=== PATIENT | male | born 1975 | race Caucasian/White ===

== ENCOUNTER 2019-08-28 10:48 | Emergency (ER) | payer BC ==
[~2019-08-28] VITALS: Ht 162.6 cm; Wt 61.3 kg
[2019-08-28] MEDS ORDERED: ipratropium/albuterol 3ml nebule NEB ONE (11:25)
[2019-08-28] MEDS ORDERED: azithromycin 250mg tablet PO ONE (11:25)
[2019-08-28] MEDS ORDERED: predniSONE 20 mg tablet PO ONE (11:25)
[2019-08-28] MEDS ORDERED: AZIT250T82 PO (11:45)
[2019-08-28] MEDS ORDERED: ALBU8.5H8 INH (11:45)
[2019-08-28] MEDS ORDERED: PRED20TA PO (11:45)
[2019-08-28 12:31] VITALS: BP 131/98
== END 2019-08-28 12:44 | disposition home or self-care (01) ==
LOC: ER 10:49
DX: J44.1 Chronic obstructive pulmonary disease with (acute) exacerbation (principal); Z87.891 Personal history of nicotine dependence; Z79.2 Long term (current) use of antibiotics; Z79.899 Other long term (current) drug therapy
CPT/HCPCS: 71045; 94640; 99283; J7512; 94760

== ENCOUNTER 2019-11-10 10:41 | Emergency (ER) | payer BC ==
[~2019-11-10 10:41] MED LIST: ALBU8.5H8 INH
[2019-11-11] MEDS ORDERED: PERM60CR19 TOP (13:32)
[2019-11-11] MEDS ORDERED: CEPH250T PO (13:32)
== END 2019-11-10 12:49 | disposition left against medical advice (07) ==
LOC: ER 10:42
DX: R21 Rash and other nonspecific skin eruption (principal); Z53.21 Procedure and treatment not carried out due to patient leaving prior to being seen by health care provider

== ENCOUNTER 2019-11-11 10:46 | Emergency (ER) | payer BC ==
[~2019-11-11] VITALS: Ht 165.1 cm; Wt 65.9 kg
[2019-11-11 11:10] VITALS: BP 117/71
[2019-11-11] MEDS ORDERED: PERM60CR19 TOP (13:32)
[2019-11-11] MEDS ORDERED: CEPH250T PO (13:32)
== END 2019-11-11 14:08 | disposition home or self-care (01) ==
LOC: ER 10:47
DX: B86 Scabies (principal); J44.9 Chronic obstructive pulmonary disease, unspecified; Z79.899 Other long term (current) drug therapy
CPT/HCPCS: 99283

== ENCOUNTER 2020-06-26 08:09 | Emergency (ER) | payer BC, MEDICAID ==
[~2020-06-26] VITALS: Ht 162.6 cm; Wt 68.2 kg
[2020-06-26] MEDS ORDERED: PRED20TA PO (09:26)
[2020-06-26 09:35] VITALS: BP 108/70
== END 2020-06-26 09:37 | disposition home or self-care (01) ==
LOC: ER 08:10
DX: R07.81 Pleurodynia (principal); J44.9 Chronic obstructive pulmonary disease, unspecified
CPT/HCPCS: 71045; 99283

== ENCOUNTER 2020-07-04 10:17 | Emergency (ER) | payer MEDICAID ==
[~2020-07-04] VITALS: Ht 162.6 cm; Wt 69.0 kg
[2020-07-04 13:02] LABS: BASOPHILS # (AUTO) 0.1 X10'3 (0-0.2); BASOPHILS % (AUTO) 0.7 % (0-1); EOSINOPHILS # (AUTO) 0.4 X10'3 (0-0.9); EOSINOPHILS % (AUTO) 4.1 % (0-6); HEMATOCRIT 45.2 % (42.0-52.0); HEMOGLOBIN 15.1 g/dl (14.0-17.9); LYMPHOCYTES # (AUTO) 1.2 X10'3 (1.1-4.8); LYMPHOCYTES % (AUTO) 11.6 % (21-51); MEAN CORPUSCULAR HEMOGLOBIN 32.2 PG (27.0-31.0); MEAN CORPUSCULAR HGB CONC 33.3 g/dL (33.0-36.5); MEAN CORPUSCULAR VOLUME 96.6 FL (78-98); MEAN PLATELET VOLUME 9.2 FL (7.4-10.4); MONOCYTES # (AUTO) 0.7 X10'3 (0-0.9); MONOCYTES % (AUTO) 6.5 % (2-12); NEUTROPHILS # (AUTO) 8.2 X10'3 (1.8-7.7); NEUTROPHILS % (AUTO) 77.1 % (42-75); PLATELET COUNT 271 X10'3 (140-440); RED BLOOD COUNT 4.68 X10'6 (4.70-6.10); RED CELL DISTRIBUTION WIDTH 13.6 % (11.5-14.5); WHITE BLOOD COUNT 10.6 X10'3 (4.5-11.0)
[2020-07-04 13:22] LABS: ALANINE AMINOTRANSFERASE 36 U/L (12-78); ALBUMIN 4.2 G/DL (3.4-5.0); ALKALINE PHOSPHATASE 108 IU/L (46-116); ANION GAP 9 (8-16); ASPARTATE AMINO TRANSFERASE 16 U/L (10-37); BILIRUBIN,TOTAL 0.8 MG/DL (0.1-1.0); BLOOD UREA NITROGEN 15 MG/DL (7-18); BUN/CREATININE RATIO 15.6 (5.4-32.0); CALCIUM 9.4 MG/DL (8.5-10.1); CHLORIDE 102 MMOL/L (99-107); CREATININE 0.96 MG/DL (0.60-1.10); GLUCOSE 91 MG/DL (70-104); POTASSIUM 3.6 MMOL/L (3.5-5.1); SODIUM 139 MMOL/L (135-145); TOTAL CARBON DIOXIDE 27.7 MMOL/L (24-32); TOTAL PROTEIN 8.6 G/DL (6.4-8.2); eGFR 85 ML/MIN
[2020-07-04] MEDS ORDERED: dexamethasone 4mg tablet PO ONE (14:35)
[2020-07-04] MEDS ORDERED: ALBU8HFA PO (14:52)
[2020-07-04] MEDS ORDERED: DOXY100C43 PO (14:52)
[2020-07-04] MEDS ORDERED: ALB0.5UD IH (14:52)
[2020-07-04] MEDS ORDERED: PRED20TA PO (14:52)
[2020-07-04] MEDS ORDERED: ipratropium/albuterol 3ml nebule NEB ONE (14:55)
[2020-07-04 15:32] VITALS: BP 122/82
== END 2020-07-04 15:36 | disposition home or self-care (01) ==
LOC: ER 10:18
DX: J44.1 Chronic obstructive pulmonary disease with (acute) exacerbation (principal); J20.9 Acute bronchitis, unspecified; R06.02 Shortness of breath; R05 Cough; R07.89 Other chest pain; Z77.22 Contact with and (suspected) exposure to environmental tobacco smoke (acute) (chronic); Z79.2 Long term (current) use of antibiotics; Z79.899 Other long term (current) drug therapy
CPT/HCPCS: 36415; 71046; 80053; 83605; 83880; 85025; 87040; 94640; 94760; 99284

== ENCOUNTER 2021-05-31 23:53 | Emergency (ER) | payer MEDICAID ==
[~2021-05-31] VITALS: Ht 162.6 cm; Wt 63.6 kg
[~2021-05-31 23:53] MED LIST changes: +ALBU8.5H17 INH; -ALBU8.5H8 INH
[2021-06-01] MEDS ORDERED: ipratropium/albuterol 3ml nebule NEB STA ×2 (00:13→01:22)
[2021-06-01] MEDS ORDERED: dexamethasone sod phosphate 10mg/ml inj IV STA (00:13)
[2021-06-01 00:32] LABS: BASOPHILS # (AUTO) 0.1 X10'3 (0-0.2); BASOPHILS % (AUTO) 0.9 % (0-1); EOSINOPHILS # (AUTO) 0.1 X10'3 (0-0.9); EOSINOPHILS % (AUTO) 0.8 % (0-6); LYMPHOCYTES # (AUTO) 0.6 X10'3 (1.1-4.8); LYMPHOCYTES % (AUTO) 5.2 % (21-51); MONOCYTES # (AUTO) 0.9 X10'3 (0-0.9); MONOCYTES % (AUTO) 7.9 % (2-12); NEUTROPHILS # (AUTO) 9.2 X10'3 (1.8-7.7); NEUTROPHILS % (AUTO) 85.2 % (42-75)
[2021-06-01 00:44] LABS: ALANINE AMINOTRANSFERASE 41 U/L (12-78); ALBUMIN 3.9 G/DL (3.4-5.0); ALKALINE PHOSPHATASE 81 IU/L (46-116); ANION GAP 15 (8-16); ASPARTATE AMINO TRANSFERASE 32 U/L (10-37); BILIRUBIN,TOTAL 1.2 MG/DL (0.1-1.0); BLOOD UREA NITROGEN 20 MG/DL (7-18); BUN/CREATININE RATIO 19.8 (5.4-32.0); CHLORIDE 95 MMOL/L (99-107); CREATININE 1.01 MG/DL (0.60-1.10); GLUCOSE 130 MG/DL (70-104); POTASSIUM 4.1 MMOL/L (3.5-5.1); SODIUM 133 MMOL/L (135-145); TOTAL CARBON DIOXIDE 22.8 MMOL/L (24-32); TOTAL PROTEIN 7.8 G/DL (6.4-8.2); eGFR 80 ML/MIN
[2021-06-01 01:14] LABS: HEMATOCRIT 38.1 % (42.0-52.0); HEMOGLOBIN 13.4 g/dl (14.0-17.9); MEAN CORPUSCULAR HEMOGLOBIN 32.6 PG (27.0-31.0); MEAN CORPUSCULAR VOLUME 93.1 FL (78-98); RED BLOOD COUNT 4.09 X10'6 (4.70-6.10); WHITE BLOOD COUNT 10.3 X10'3 (4.5-11.0)
[2021-06-01 01:15] LABS: MEAN PLATELET VOLUME 9.4 FL (7.4-10.4); PLATELET COUNT 235 X10'3 (140-440); RED CELL DISTRIBUTION WIDTH 13.5 % (11.5-14.5)
--- NOTE | 2021-06-01 01:54 | NUR ---
april [phone]
[2021-06-01] MEDS ORDERED: albuterol 2.5 MG/3 ML nebule NEB ONE (02:00)
--- NOTE | 2021-06-01 02:15 | NUR ---
Called stat to critical care. RN to monitor SVN treatment.
[2021-06-01] MEDS ORDERED: iohexol 350MG/ML 100ml bottle IV ONE (02:34)
[2021-06-01 02:38] LABS: TOTAL CELLS COUNTED 100
[2021-06-01 02:39] LABS: PLATELET ESTIMATE NORMAL
[2021-06-01 02:41] LABS: ANISOCYTOSIS FEW; ELLIPTOCYTES FEW; SPHEROCYTES FEW; TEAR DROP CELLS FEW
[2021-06-01 02:50] VITALS: BP 120/66
[2021-06-01] MEDS ORDERED: GUAI400T92 PO (03:28)
[2021-06-01] MEDS ORDERED: ALBU8HFA PO (03:28)
== END 2021-06-01 03:35 | disposition left against medical advice (07) ==
LOC: ER 23:53
DX: J44.1 Chronic obstructive pulmonary disease with (acute) exacerbation (principal); R07.81 Pleurodynia; R06.02 Shortness of breath; E86.0 Dehydration; R05.9 Cough, unspecified; Z79.899 Other long term (current) drug therapy
CPT/HCPCS: 36415; 71045; 80053; 83880; 84484; 85007; 85025; 93005; 94640; 96374; 99285; J1100; Q9967; 94760

== ENCOUNTER 2021-07-02 15:25 | Emergency (ER) | payer MEDICAID ==
[~2021-07-02] VITALS: Ht 162.6 cm; Wt 63.0 kg
[~2021-07-02 15:25] MED LIST changes: +ALBU8HFA PO; +GUAI400T92 PO
--- NOTE | 2021-07-02 16:13 | NUR ---
Dr. Hatch at bedside.
[2021-07-02] MEDS ORDERED: methylPREDNISolone sod succ 125mg/2ml vial IV ONE (16:15)
[2021-07-02] MEDS ORDERED: ipratropium/albuterol 3ml nebule NEB ONE (16:15)
[2021-07-02] MEDS ORDERED: normal saline 1000ml 1,000 ML IV ONE (16:15)
--- NOTE | 2021-07-02 16:20 | NUR ---
Pt moved to room 11. He is severely sob. +Tripoding. Wheezing troughout all gonsalves. +Productive cough with thick olive colored sputum. Pt was resistant to having a swab for Covid-19 but changed his mind and allowed the test.
[2021-07-02] MEDS ORDERED: albuterol 2.5 MG/3 ML nebule CONTNEB PRN (16:30)
[2021-07-02 16:35] LABS: BASOPHILS # (AUTO) 0.1 X10'3 (0-0.2); BASOPHILS % (AUTO) 0.4 % (0-1); EOSINOPHILS # (AUTO) 0.1 X10'3 (0-0.9); HEMATOCRIT 40.6 % (42.0-52.0); HEMOGLOBIN 13.4 g/dl (14.0-17.9); LYMPHOCYTES # (AUTO) 0.9 X10'3 (1.1-4.8); LYMPHOCYTES % (AUTO) 6.2 % (21-51); MEAN CORPUSCULAR HEMOGLOBIN 31.6 PG (27.0-31.0); MEAN CORPUSCULAR HGB CONC 33.1 g/dL (33.0-36.5); MEAN CORPUSCULAR VOLUME 95.3 FL (78-98); MEAN PLATELET VOLUME 8.8 FL (7.4-10.4); MONOCYTES # (AUTO) 1.1 X10'3 (0-0.9); MONOCYTES % (AUTO) 7.8 % (2-12); NEUTROPHILS # (AUTO) 12.1 X10'3 (1.8-7.7); NEUTROPHILS % (AUTO) 84.6 % (42-75); PLATELET COUNT 249 X10'3 (140-440); RED BLOOD COUNT 4.25 X10'6 (4.70-6.10); RED CELL DISTRIBUTION WIDTH 13.9 % (11.5-14.5); WHITE BLOOD COUNT 14.2 X10'3 (4.5-11.0)
[2021-07-02] MEDS ORDERED: LORazepam 2 mg/ml vial IV ONE (16:40)
--- NOTE | 2021-07-02 16:45 | NUR ---
C/O pain in L lower chest.
[2021-07-02 16:54] LABS: ALANINE AMINOTRANSFERASE 39 U/L (12-78); ALBUMIN/GLOBULIN RATIO 1.1 (1.1-1.5); ALKALINE PHOSPHATASE 85 IU/L (46-116); ANION GAP 11 (8-16); ASPARTATE AMINO TRANSFERASE 19 U/L (10-37); BILIRUBIN,TOTAL 1.1 MG/DL (0.1-1.0); BLOOD UREA NITROGEN 20 MG/DL (7-18); BUN/CREATININE RATIO 21.7 (5.4-32.0); CALCIUM 9.5 MG/DL (8.5-10.1); CHLORIDE 100 MMOL/L (99-107); CREATININE 0.92 MG/DL (0.60-1.10); GLUCOSE 85 MG/DL (70-104); POTASSIUM 3.7 MMOL/L (3.5-5.1); SODIUM 139 MMOL/L (135-145); TOTAL CARBON DIOXIDE 27.7 MMOL/L (24-32); TOTAL PROTEIN 7.8 G/DL (6.4-8.2); eGFR 89 ML/MIN
--- NOTE | 2021-07-02 17:29 | NUR ---
Pt opened his door and yelled out in the hallway, "HEY, I NEED ANOTHER BREATHING TREATMENT."
[2021-07-02] MEDS ORDERED: levoFLOXACIN-Levaquin 500mg/D5 100 ML IV ONE (18:10)
[2021-07-02 19:09] VITALS: BP 134/76
[2021-07-02] MEDS ORDERED: PRED20TA PO (19:38)
[2021-07-02] MEDS ORDERED: LEVO500T90 PO (19:38)
== END 2021-07-02 20:30 | disposition home or self-care (01) ==
LOC: ER 15:26
DX: J45.901 Unspecified asthma with (acute) exacerbation (principal); Z20.822 Contact with and (suspected) exposure to COVID-19; R05.9 Cough, unspecified; R06.2 Wheezing; Z79.2 Long term (current) use of antibiotics; Z79.899 Other long term (current) drug therapy
CPT/HCPCS: 36415; 71045; 80053; 83605; 83880; 84145; 84484; 85025; 87040; 87635; 93005; 94640; 96361; 96365; 96375; 99285; C9803; J1956; J2060; J2930; J7030; 94760; A7015

== ENCOUNTER 2021-11-14 00:53 | Inpatient (IN) | payer MEDICAID ==
[~2021-11-14] VITALS: Ht 162.6 cm; Wt 61.5 kg
[~2021-11-14 00:53] MED LIST changes: -ALBU8HFA PO
[2021-11-14] MEDS ORDERED: methylPREDNISolone sod succ 125mg/2ml vial IV ONE (01:00)
[2021-11-14 01:18] LABS: BASOPHILS # (AUTO) 0.1 X10'3 (0-0.2); EOSINOPHILS # (AUTO) 0.5 X10'3 (0-0.9)
[2021-11-14 01:19] LABS: BASOPHILS % (AUTO) 0.9 % (0-1); EOSINOPHILS % (AUTO) 4.2 % (0-6); HEMATOCRIT 38.6 % (42.0-52.0); HEMOGLOBIN 12.5 g/dl (14.0-17.9); LYMPHOCYTES # (AUTO) 1.7 X10'3 (1.1-4.8); LYMPHOCYTES % (AUTO) 14.1 % (21-51); MEAN CORPUSCULAR HEMOGLOBIN 30.5 PG (27.0-31.0); MEAN CORPUSCULAR HGB CONC 32.5 g/dL (33.0-36.5); MEAN CORPUSCULAR VOLUME 93.8 FL (78-98); MEAN PLATELET VOLUME 8.9 FL (7.4-10.4); MONOCYTES # (AUTO) 1.1 X10'3 (0-0.9); MONOCYTES % (AUTO) 9.3 % (2-12); NEUTROPHILS # (AUTO) 8.6 X10'3 (1.8-7.7); NEUTROPHILS % (AUTO) 71.5 % (42-75); PLATELET COUNT 407 X10'3 (140-440); RED BLOOD COUNT 4.11 X10'6 (4.70-6.10); RED CELL DISTRIBUTION WIDTH 14.3 % (11.5-14.5)
[2021-11-14 01:29] LABS: ALANINE AMINOTRANSFERASE 33 U/L (12-78); ALBUMIN 3.4 G/DL (3.4-5.0); ALBUMIN/GLOBULIN RATIO 0.8 (1.1-1.5); ALKALINE PHOSPHATASE 90 IU/L (46-116); ANION GAP 10 (8-16); ASPARTATE AMINO TRANSFERASE 23 U/L (10-37); BILIRUBIN,TOTAL 0.4 MG/DL (0.1-1.0); BLOOD UREA NITROGEN 15 MG/DL (7-18); BUN/CREATININE RATIO 13.8 (5.4-32.0); CALCIUM 9.4 MG/DL (8.5-10.1); CHLORIDE 103 MMOL/L (99-107); CREATININE 1.09 MG/DL (0.60-1.10); GLUCOSE 198 MG/DL (70-104); POTASSIUM 4.5 MMOL/L (3.5-5.1); SODIUM 140 MMOL/L (135-145); TOTAL CARBON DIOXIDE 26.9 MMOL/L (24-32); TOTAL PROTEIN 7.7 G/DL (6.4-8.2); eGFR 73 ML/MIN
[2021-11-14] MEDS ORDERED: albuterol 2.5 MG/3 ML nebule NEB ONE (03:25)
[2021-11-14] MEDS ORDERED: ipratropium 0.5 MG/2.5ML nebule IH ONE (03:25)
[2021-11-14] MEDS ORDERED: cefTRIAXone 1g/NS 100ml IVPB 100 ML IV ONE (04:15)
[2021-11-14] MEDS ORDERED: acetaminophen 325mg tablet PO PRN (05:20)
[2021-11-14] MEDS ORDERED: POTASSIUM BICARB 20meq eff tab 20 MEQ TABLET.EFF PO PRN ×2 (05:20)
[2021-11-14] MEDS ORDERED: magnesium hydroxide 30ml (MOM) UD suspension PO PRN (05:20)
[2021-11-14] MEDS ORDERED: potassium CL 10mEq/100ml bag 100 ML IV PRN (05:20)
[2021-11-14] MEDS ORDERED: ondansetron/PF 4mg/2ml inj IV PRN (05:20)
[2021-11-14] MEDS ORDERED: mag hydrox/Alum hydrox/simeth 30ml oral suspension PO PRN (05:20)
[2021-11-14] MEDS ORDERED: magnesium 2GM in 50ml NS 50 ML IV PRN (05:20)
[2021-11-14] MEDS ORDERED: magnesium Cl slow-release 64mg tablet PO PRN (05:20)
[2021-11-14] MEDS ORDERED: magnesium 4gm in 100ml NS 100 ML IV PRN (05:20)
[2021-11-14] MEDS ORDERED: PERFLUTREN PROTEIN-A MICROSPHR (Optison) 0.22 MG/ML 3ML VIAL IV PRN (05:20)
[2021-11-14 05:35] LABS: ABG BASE EXCESS 0.5 mmol/L (-2.0-2.0); ABG HCO3 25.4 mmol/L (22.0-26.0); ABG OXYGEN SATURATION 96.8 % (94-97); ABG PCO2 (T) 41.1 mmHg (35.0-48.0); ABG PO2 (T) 89.8 mmHg (75.0-100.0); ALLEN'S TEST POSITIVE; FMetHb 0.2 % (0.0-1.5); FO2Hb 96.6 % (94-97); PATIENT TEMPERATURE 36.7; TOTAL HEMOGLOBIN 12.3 G/dl (14.0-18.0)
[2021-11-14] MEDS: normal saline 1000ml 1,000 ML IV SCH (05:59)
--- NOTE | 2021-11-14 06:13 | NUR ---
RESP PAGED FOR NEB TREATMENT ABGS ENTERED
--- NOTE | 2021-11-14 06:30 | NUR ---
FIRST CONTACT WITH PT, FOUND HIGH FOWLERS IN BED. PT BREATHING ON BIPAP, RT AT BEDSIDE FOR BREATHING TX. PT IS AWAITING BED UPSTAIRS, IN NO DISTRESS.
[2021-11-14] MEDS: albuterol 2.5 MG/3 ML nebule NEB PRN ×2 (06:50→10:51)
[2021-11-14] MEDS: K and/or MAG REPLACEMENT MC SCH ×2 (08:00→18:17)
[2021-11-14] MEDS: docusate sod 100mg capsule PO SCH ×2 (08:00→19:48)
[2021-11-14] MEDS: methylPREDNISolone sod succ/PF 40mg inj. IV SCH ×3 (09:38→19:49)
[2021-11-14] MEDS: heparin, porcine 5000 units/ml vial SQ SCH ×2 (09:38→19:49)
[2021-11-14] MEDS: LORazepam 2 mg/ml vial IV PRN ×3 (09:48→20:04)
--- NOTE | 2021-11-14 10:00 | NUR ---
DR. RAMOS AT BEDSIDE. VERBAL ORDER FOR 0.5MG ATIVAN PRN Q4.
--- NOTE | 2021-11-14 11:05 | NUR ---
RT AT BEDSIDE.
--- NOTE | 2021-11-14 14:05 | NUR ---
TELEPHONE REPORT TO CASH POSTING REPRESENTATIVE.
--- NOTE | 2021-11-14 14:20 | NUR ---
RECEIVED PATIENT AN ER HOLD ON BIPAP 30%O2 WITH RT TX ON ARRIVAL TO PACU. DENIES PAIN, V/S STABLE. SKIN CLEAR. 18G PIV RUE.
[2021-11-14] MEDS ORDERED: TRIA15OI9 TOP (14:38)
[2021-11-14] MEDS ORDERED: TIOT4MIS3 INH (14:38)
[2021-11-14] MEDS ORDERED: ALBU2.5V13 NEB (14:38)
[2021-11-14] MEDS ORDERED: IPRA3AMP31 NEB (14:38)
[2021-11-14] MEDS ORDERED: MONT-40 PO (14:38)
[2021-11-14] MEDS ORDERED: LOSA50TA64 PO (14:38)
[2021-11-14] MEDS ORDERED: HYDR12.55 PO (14:38)
--- NOTE | 2021-11-14 14:45 | NUR ---
RT AT BEDSIDE FOR TRANSPORT. WILL TAKE PT OFF BIPAP FOR XFER, PT TOLERATING HIGH FLOW NC, 02 REMAINS 100%. PT IS TACHYPNEIC, WILL MEDICATE WITH PRN ATIVAN.
[2021-11-14 14:50] VITALS: BP 139/98
[2021-11-14] MEDS: ipratropium/albuterol 3ml nebule NEB SCH ×3 (15:09→23:12)
[2021-11-14 15:50] VITALS: BP 156/98
[2021-11-14 16:50] VITALS: BP 145/86
[2021-11-14 17:40] VITALS: BP 132/89
--- NOTE | 2021-11-14 17:40 | NUR ---
PATIENT ON ON BIPAP 30% O2 , DENIES PAIN, V/S STABLE. SKIN CLEAR. 18G PIV RUE. TAKEN TO U 3018A AND REPORT GIVEN TO RN WHO HAS TAKEN OVER PATIENT CARE. CALL LIGHT GIVEN TO PATIENT, RAILS UP AND BED DOWN.
[2021-11-14 18:00] VITALS: BP 144/99
[2021-11-14 19:26] LABS: MAGNESIUM 1.9 MG/DL (1.5-2.4); POTASSIUM 4.5 MMOL/L (3.5-5.1)
[2021-11-14] MEDS: montelukast 10mg tablet PO SCH (19:48)
[2021-11-14 21:52] VITALS: BP 133/93
[2021-11-14 22:24] LABS: URINE AMPHETAMINE SCREEN NEGATIVE (Neg); URINE BARBITUATE SCREEN NEGATIVE (Neg); URINE BENZODIAZEPINES SCREEN NEGATIVE (Neg); URINE CANNABINOID SCREEN POSITIVE (Neg); URINE COCAINE SCREEN NEGATIVE (Neg); URINE METHADONE SCREEN NEGATIVE (Neg); URINE OPIATE SCREEN NEGATIVE (Neg); URINE PHENCYCLIDINE SCREEN NEGATIVE (Neg)
[2021-11-15 02:09] VITALS: BP 106/78
[2021-11-15] MEDS: methylPREDNISolone sod succ/PF 40mg inj. IV SCH ×4 (02:11→19:33)
[2021-11-15] MEDS: ipratropium/albuterol 3ml nebule NEB SCH ×6 (03:21→23:14)
[2021-11-15] MEDS: cefTRIAXone 1g/NS 100ml IVPB 100 ML IV SCH (04:37)
[2021-11-15 06:00] VITALS: BP 119/81
[2021-11-15 06:35] LABS: BASOPHILS % (AUTO) 0.2 % (0-1); EOSINOPHILS % (AUTO) 0.1 % (0-6); HEMATOCRIT 32.9 % (42.0-52.0); LYMPHOCYTES # (AUTO) 0.5 X10'3 (1.1-4.8); LYMPHOCYTES % (AUTO) 6.5 % (21-51); MEAN CORPUSCULAR HEMOGLOBIN 30.8 PG (27.0-31.0); MEAN CORPUSCULAR HGB CONC 33.4 g/dL (33.0-36.5); MEAN CORPUSCULAR VOLUME 92.2 FL (78-98); MEAN PLATELET VOLUME 8.9 FL (7.4-10.4); MONOCYTES # (AUTO) 0.3 X10'3 (0-0.9); MONOCYTES % (AUTO) 3.9 % (2-12); NEUTROPHILS # (AUTO) 7.3 X10'3 (1.8-7.7); NEUTROPHILS % (AUTO) 89.3 % (42-75); PLATELET COUNT 310 X10'3 (140-440); RED BLOOD COUNT 3.57 X10'6 (4.70-6.10); RED CELL DISTRIBUTION WIDTH 14.1 % (11.5-14.5); WHITE BLOOD COUNT 8.2 X10'3 (4.5-11.0)
[2021-11-15 06:43] LABS: ALANINE AMINOTRANSFERASE 23 U/L (12-78); ALBUMIN 2.9 G/DL (3.4-5.0); ALBUMIN/GLOBULIN RATIO 0.7 (1.1-1.5); ALKALINE PHOSPHATASE 72 IU/L (46-116); ANION GAP 5 (8-16); ASPARTATE AMINO TRANSFERASE 11 U/L (10-37); BILIRUBIN,TOTAL 0.6 MG/DL (0.1-1.0); BLOOD UREA NITROGEN 20 MG/DL (7-18); CALCIUM 8.3 MG/DL (8.5-10.1); CHLORIDE 103 MMOL/L (99-107); CREATININE 0.77 MG/DL (0.60-1.10); GLUCOSE 143 MG/DL (70-104); POTASSIUM 4.5 MMOL/L (3.5-5.1); SODIUM 137 MMOL/L (135-145); TOTAL PROTEIN 6.8 G/DL (6.4-8.2); eGFR > 90 ML/MIN
[2021-11-15] MEDS: K and/or MAG REPLACEMENT MC SCH ×2 (08:00→18:24)
[2021-11-15] MEDS: heparin, porcine 5000 units/ml vial SQ SCH ×2 (08:48→19:34)
[2021-11-15] MEDS: HYDROchlorothiazide 12.5mg capsule PO SCH (08:48)
[2021-11-15] MEDS: losartan 50mg tablet PO SCH (08:49)
[2021-11-15] MEDS: docusate sod 100mg capsule PO SCH ×2 (08:49→19:33)
[2021-11-15 11:00] VITALS: BP 114/69
[2021-11-15 15:00] VITALS: BP 102/60
--- NOTE | 2021-11-15 15:45 | NUR ---
PAGER ID: [phone] MESSAGE: Room: 3018A: [place]: This pt is requesting triminlum cream for his eczema. [facility] [id number]
[2021-11-15] MEDS: montelukast 10mg tablet PO SCH (19:33)
[2021-11-15 21:24] VITALS: BP 109/68
[2021-11-16 02:13] VITALS: BP 112/79
[2021-11-16] MEDS: methylPREDNISolone sod succ/PF 40mg inj. IV SCH ×4 (02:16→20:47)
[2021-11-16] MEDS: LORazepam 2 mg/ml vial IV PRN ×2 (02:23→23:06)
[2021-11-16] MEDS: ipratropium/albuterol 3ml nebule NEB SCH ×6 (03:18→23:09)
[2021-11-16] MEDS: normal saline 1000ml 1,000 ML IV SCH (04:09)
[2021-11-16] MEDS: cefTRIAXone 1g/NS 100ml IVPB 100 ML IV SCH (04:33)
[2021-11-16 06:00] VITALS: BP 113/70
--- NOTE | 2021-11-16 06:58 | NUR ---
Patient in room PCU 3018. I have received report from GI Terry and had the opportunity to ask questions and assume patient care.
[2021-11-16 07:39] LABS: BASOPHILS % (AUTO) 0.4 % (0-1); EOSINOPHILS % (AUTO) 0 % (0-6); HEMATOCRIT 34.1 % (42.0-52.0); HEMOGLOBIN 11.1 g/dl (14.0-17.9); LYMPHOCYTES # (AUTO) 0.4 X10'3 (1.1-4.8); LYMPHOCYTES % (AUTO) 3.9 % (21-51); MEAN CORPUSCULAR HEMOGLOBIN 30.1 PG (27.0-31.0); MEAN CORPUSCULAR HGB CONC 32.5 g/dL (33.0-36.5); MEAN CORPUSCULAR VOLUME 92.7 FL (78-98); MEAN PLATELET VOLUME 9.2 FL (7.4-10.4); MONOCYTES # (AUTO) 0.4 X10'3 (0-0.9); MONOCYTES % (AUTO) 3.8 % (2-12); NEUTROPHILS # (AUTO) 9.8 X10'3 (1.8-7.7); NEUTROPHILS % (AUTO) 91.9 % (42-75); PLATELET COUNT 312 X10'3 (140-440); RED BLOOD COUNT 3.67 X10'6 (4.70-6.10); RED CELL DISTRIBUTION WIDTH 14.5 % (11.5-14.5); WHITE BLOOD COUNT 10.7 X10'3 (4.5-11.0)
--- NOTE | 2021-11-16 07:41 | NUR ---
PAGER ID: [phone] MESSAGE: Room: [facility]8A: [facility]: Pt is requesting a decongestant. GI Pederson [id number]
[2021-11-16] MEDS: K and/or MAG REPLACEMENT MC SCH ×2 (08:00→20:00)
[2021-11-16 08:03] LABS: ALANINE AMINOTRANSFERASE 42 U/L (12-78); ALBUMIN 2.9 G/DL (3.4-5.0); ALBUMIN/GLOBULIN RATIO 0.7 (1.1-1.5); ALKALINE PHOSPHATASE 68 IU/L (46-116); ANION GAP 7 (8-16); ASPARTATE AMINO TRANSFERASE 18 U/L (10-37); BILIRUBIN,TOTAL 0.4 MG/DL (0.1-1.0); BLOOD UREA NITROGEN 28 MG/DL (7-18); BUN/CREATININE RATIO 35.9 (5.4-32.0); CALCIUM 8.5 MG/DL (8.5-10.1); CHLORIDE 102 MMOL/L (99-107); CREATININE 0.78 MG/DL (0.60-1.10); GLUCOSE 133 MG/DL (70-104); POTASSIUM 4.3 MMOL/L (3.5-5.1); SODIUM 137 MMOL/L (135-145); TOTAL CARBON DIOXIDE 27.6 MMOL/L (24-32); TOTAL PROTEIN 6.8 G/DL (6.4-8.2); eGFR > 90 ML/MIN
--- NOTE | 2021-11-16 08:03 | NUR ---
PAGER ID: [phone] MESSAGE: Room: [facility]8B: [place]: Pt is requesting breathing treatments. He's currently on 3L of oxygen with an oxygen saturation of 100%. GI Pederson [id number]
[2021-11-16] MEDS: triamcinolone acetonide 0.1% ointment 15gm TP SCH ×2 (08:05→20:48)
[2021-11-16] MEDS: docusate sod 100mg capsule PO SCH ×2 (08:07→20:46)
[2021-11-16] MEDS: HYDROchlorothiazide 12.5mg capsule PO SCH (08:08)
[2021-11-16] MEDS: heparin, porcine 5000 units/ml vial SQ SCH ×2 (08:08→20:47)
[2021-11-16] MEDS: losartan 50mg tablet PO SCH (08:09)
[2021-11-16 11:00] VITALS: BP 112/69
[2021-11-16 18:00] VITALS: BP 139/89
[2021-11-16 20:44] VITALS: BP 120/68
[2021-11-16] MEDS: guaiFENesin ER 600mg tablet PO SCH (20:46)
[2021-11-16] MEDS: montelukast 10mg tablet PO SCH (21:00)
[2021-11-16 22:00] VITALS: BP 128/76
[2021-11-17] MEDS: ipratropium/albuterol 3ml nebule NEB SCH ×6 (03:13→23:21)
[2021-11-17 03:25] VITALS: BP 115/64
[2021-11-17] MEDS: methylPREDNISolone sod succ/PF 40mg inj. IV SCH ×4 (03:28→20:48)
[2021-11-17] MEDS: cefTRIAXone 1g/NS 100ml IVPB 100 ML IV SCH (03:33)
[2021-11-17 06:00] VITALS: BP 109/80
--- NOTE | 2021-11-17 06:43 | NUR ---
Problems reprioritized. Patient report given, GI Johnson, questions answered & plan of care reviewed with .
--- NOTE | 2021-11-17 06:45 | NUR ---
Patient in room PCU 3018. I have received report from GI Jeff and had the opportunity to ask questions and assume patient care.
[2021-11-17 07:26] LABS: BASOPHILS % (AUTO) 0.3 % (0-1); EOSINOPHILS % (AUTO) 0 % (0-6); HEMATOCRIT 35.2 % (42.0-52.0); HEMOGLOBIN 11.5 g/dl (14.0-17.9); LYMPHOCYTES # (AUTO) 0.4 X10'3 (1.1-4.8); MEAN CORPUSCULAR HEMOGLOBIN 30.2 PG (27.0-31.0); MEAN CORPUSCULAR HGB CONC 32.8 g/dL (33.0-36.5); MEAN PLATELET VOLUME 8.7 FL (7.4-10.4); MONOCYTES # (AUTO) 0.6 X10'3 (0-0.9); MONOCYTES % (AUTO) 5.2 % (2-12); NEUTROPHILS # (AUTO) 9.7 X10'3 (1.8-7.7); NEUTROPHILS % (AUTO) 90.5 % (42-75); PLATELET COUNT 312 X10'3 (140-440); RED BLOOD COUNT 3.82 X10'6 (4.70-6.10); RED CELL DISTRIBUTION WIDTH 14.2 % (11.5-14.5); WHITE BLOOD COUNT 10.7 X10'3 (4.5-11.0)
[2021-11-17 07:41] LABS: ALANINE AMINOTRANSFERASE 49 U/L (12-78); ALBUMIN/GLOBULIN RATIO 0.8 (1.1-1.5); ALKALINE PHOSPHATASE 68 IU/L (46-116); ANION GAP 5 (8-16); ASPARTATE AMINO TRANSFERASE 18 U/L (10-37); BILIRUBIN,TOTAL 0.5 MG/DL (0.1-1.0); BLOOD UREA NITROGEN 24 MG/DL (7-18); BUN/CREATININE RATIO 35.3 (5.4-32.0); CALCIUM 8.5 MG/DL (8.5-10.1); CHLORIDE 103 MMOL/L (99-107); CREATININE 0.68 MG/DL (0.60-1.10); GLUCOSE 156 MG/DL (70-104); POTASSIUM 4.2 MMOL/L (3.5-5.1); SODIUM 137 MMOL/L (135-145); TOTAL CARBON DIOXIDE 29.1 MMOL/L (24-32); TOTAL PROTEIN 6.8 G/DL (6.4-8.2); eGFR > 90 ML/MIN
[2021-11-17] MEDS: K and/or MAG REPLACEMENT MC SCH ×2 (08:00→20:00)
[2021-11-17] MEDS: triamcinolone acetonide 0.1% ointment 15gm TP SCH ×2 (08:00→20:48)
[2021-11-17] MEDS: docusate sod 100mg capsule PO SCH ×2 (08:00→20:00)
[2021-11-17] MEDS: HYDROchlorothiazide 12.5mg capsule PO SCH (09:14)
[2021-11-17] MEDS: losartan 50mg tablet PO SCH (09:15)
[2021-11-17] MEDS: guaiFENesin ER 600mg tablet PO SCH ×2 (09:15→20:48)
[2021-11-17] MEDS: heparin, porcine 5000 units/ml vial SQ SCH ×2 (09:16→20:48)
[2021-11-17 11:00] VITALS: BP 107/72
[2021-11-17] MEDS: furosemide 20 MG/2 ML vial IV SCH ×2 (12:15→20:47)
[2021-11-17 15:00] VITALS: BP 159/69
[2021-11-17 18:00] VITALS: BP 123/80
--- NOTE | 2021-11-17 18:30 | NUR ---
Patient in room PCU 3018. I have received report from [facility] and had the opportunity to ask questions and assume patient care.
--- NOTE | 2021-11-17 18:32 | NUR ---
Problems reprioritized. Patient report given, questions answered & plan of care reviewed with GI Garcia.
[2021-11-17] MEDS: montelukast 10mg tablet PO SCH (20:48)
[2021-11-17] MEDS: LORazepam 2 mg/ml vial IV PRN (20:57)
[2021-11-17 23:00] VITALS: BP 94/48
[2021-11-18 02:00] VITALS: BP 116/76
[2021-11-18] MEDS ORDERED: HYDROcodone/acetaminophen 5mg/325mg tablet PO PRN (02:00)
--- NOTE | 2021-11-18 02:00 | NUR ---
pt c/o headache. 02/08. Dr. Gabriel called. new orders given. will continue to monitor
[2021-11-18] MEDS: ipratropium/albuterol 3ml nebule NEB SCH ×2 (03:59→07:07)
[2021-11-18] MEDS: cefTRIAXone 1g/NS 100ml IVPB 100 ML IV SCH (04:25)
[2021-11-18] MEDS: normal saline 1000ml 1,000 ML IV SCH (04:25)
--- NOTE | 2021-11-18 06:28 | NUR ---
Patient in room PCU 3018. I have received report from Radha ANGELO and had the opportunity to ask questions and assume patient care.
--- NOTE | 2021-11-18 06:34 | NUR ---
Problems reprioritized. Patient report given, questions answered & plan of care reviewed with Sasha ANGELO.
[2021-11-18 06:55] VITALS: BP 116/76
[2021-11-18 07:41] LABS: BASOPHILS # (AUTO) 0.1 X10'3 (0-0.2); BASOPHILS % (AUTO) 0.7 % (0-1); EOSINOPHILS % (AUTO) 0 % (0-6); HEMATOCRIT 38.7 % (42.0-52.0); HEMOGLOBIN 12.5 g/dl (14.0-17.9); LYMPHOCYTES # (AUTO) 0.8 X10'3 (1.1-4.8); LYMPHOCYTES % (AUTO) 6.6 % (21-51); MEAN CORPUSCULAR HEMOGLOBIN 29.8 PG (27.0-31.0); MEAN CORPUSCULAR HGB CONC 32.4 g/dL (33.0-36.5); MEAN CORPUSCULAR VOLUME 91.9 FL (78-98); MEAN PLATELET VOLUME 8.9 FL (7.4-10.4); MONOCYTES # (AUTO) 0.8 X10'3 (0-0.9); MONOCYTES % (AUTO) 6.3 % (2-12); NEUTROPHILS # (AUTO) 10.9 X10'3 (1.8-7.7); NEUTROPHILS % (AUTO) 86.4 % (42-75); PLATELET COUNT 353 X10'3 (140-440); RED BLOOD COUNT 4.22 X10'6 (4.70-6.10); RED CELL DISTRIBUTION WIDTH 14.1 % (11.5-14.5); WHITE BLOOD COUNT 12.6 X10'3 (4.5-11.0)
[2021-11-18 07:57] LABS: ALANINE AMINOTRANSFERASE 82 U/L (12-78); ALBUMIN/GLOBULIN RATIO 0.8 (1.1-1.5); ALKALINE PHOSPHATASE 70 IU/L (46-116); ANION GAP 9 (8-16); ASPARTATE AMINO TRANSFERASE 23 U/L (10-37); BILIRUBIN,TOTAL 0.5 MG/DL (0.1-1.0); BLOOD UREA NITROGEN 37 MG/DL (7-18); BUN/CREATININE RATIO 41.1 (5.4-32.0); CALCIUM 8.8 MG/DL (8.5-10.1); CHLORIDE 101 MMOL/L (99-107); GLUCOSE 112 MG/DL (70-104); POTASSIUM 4.5 MMOL/L (3.5-5.1); SODIUM 141 MMOL/L (135-145); TOTAL CARBON DIOXIDE 30.8 MMOL/L (24-32); TOTAL PROTEIN 6.9 G/DL (6.4-8.2); eGFR > 90 ML/MIN
[2021-11-18] MEDS ORDERED: predniSONE 20 mg tablet PO SCH (08:00)
[2021-11-18] MEDS: heparin, porcine 5000 units/ml vial SQ SCH (08:00)
[2021-11-18] MEDS ORDERED: PRED10TA23 PO (08:54)
[2021-11-18] MEDS ORDERED: GUAI600T45 PO (08:54)
[2021-11-18] MEDS ORDERED: FURO-150 PO (08:54)
[2021-11-18] MEDS: HYDROchlorothiazide 12.5mg capsule PO SCH (09:20)
[2021-11-18] MEDS: guaiFENesin ER 600mg tablet PO SCH (09:20)
[2021-11-18] MEDS: docusate sod 100mg capsule PO SCH (09:21)
[2021-11-18] MEDS: losartan 50mg tablet PO SCH (09:21)
[2021-11-18] MEDS: furosemide 20 MG/2 ML vial IV SCH (09:24)
[2021-11-18 10:00] VITALS: BP 107/62
--- NOTE | 2021-11-18 11:18 | NUR ---
patient appears stable seen by Dr Carlton is for discharge . All Dc instructions given to patient . patient DC home via private car to home which is his car, picked up by friend in private car in stable condition
== END 2021-11-18 11:17 | disposition home or self-care (01) | DRG 139 ==
LOC: ER 00:54 → ED HOLD 05:23 → PCU 3S 17:50
PROVIDERS: ADMIT Internal Medicine; ATTEND Family Medicine
PROC: 5A09357 Assistance with Respiratory Ventilation, Less than 24 Consecutive Hours, Continuous Positive Airway Pressure (ICD-10-PCS; principal; 2021-11-14)
PROC: 5A09357 Assistance with Respiratory Ventilation, Less than 24 Consecutive Hours, Continuous Positive Airway Pressure (ICD-10-PCS; 2021-11-15)
PROC: 5A09357 Assistance with Respiratory Ventilation, Less than 24 Consecutive Hours, Continuous Positive Airway Pressure (ICD-10-PCS; 2021-11-16)
DX: J18.9 Pneumonia, unspecified organism (principal); J96.01 Acute respiratory failure with hypoxia; I50.23 Acute on chronic systolic (congestive) heart failure; J44.0 Chronic obstructive pulmonary disease with (acute) lower respiratory infection; I11.0 Hypertensive heart disease with heart failure; I27.20 Pulmonary hypertension, unspecified; Z96.651 Presence of right artificial knee joint; I27.81 Cor pulmonale (chronic); J44.1 Chronic obstructive pulmonary disease with (acute) exacerbation; F17.200 Nicotine dependence, unspecified, uncomplicated; Z79.899 Other long term (current) drug therapy; Z59.02 Unsheltered homelessness
CPT/HCPCS: 36415; 36600; 71045; 80053; 80305; 82803; 83735; 83880; 84132; 84484; 85018; 85025; 87081; 93005; 93306; 94640; 94660; 94760; 96365; 99285; G0378; J0696; J1644; J1940; J2060; J2920; J2930; J7030; J7512

== ENCOUNTER 2022-04-11 07:01 | Inpatient (IN) | payer MEDICAID ==
[~2022-04-11] VITALS: Ht 162.6 cm; Wt 65.0 kg
[~2022-04-11 07:01] MED LIST changes: +ALBU2.5V13 NEB; -GUAI400T92 PO; +GUAI600T45 PO; +HYDR12.55 PO; +IPRA3AMP31 NEB; +LOSA50TA64 PO; +MONT-40 PO; +TIOT4MIS3 INH; +TRIA15OI9 TOP
[2022-04-11] MEDS ORDERED: methylPREDNISolone sod succ 125mg/2ml vial IV ONE (07:35)
[2022-04-11] MEDS ORDERED: CefTRIAXone 2gm/D5W 50ml BAG 50 ML IV ONE (07:40)
[2022-04-11] MEDS ORDERED: ipratropium/albuterol 3ml nebule NEB PRN (07:50)
[2022-04-11] MEDS: albuterol 2.5 MG/3 ML nebule CONTNEB PRN ×2 (07:53→13:33)
[2022-04-11 08:13] LABS: BASOPHILS # (AUTO) 0.1 X10'3 (0-0.2); BASOPHILS % (AUTO) 1.1 % (0-1); EOSINOPHILS # (AUTO) 0.1 X10'3 (0-0.9); EOSINOPHILS % (AUTO) 0.6 % (0-6); HEMOGLOBIN 13.4 g/dl (14.0-17.9); LYMPHOCYTES # (AUTO) 0.8 X10'3 (1.1-4.8); LYMPHOCYTES % (AUTO) 6.7 % (21-51); MEAN CORPUSCULAR HEMOGLOBIN 30.9 PG (27.0-31.0); MEAN CORPUSCULAR HGB CONC 33.6 g/dL (33.0-36.5); MEAN CORPUSCULAR VOLUME 91.9 FL (78-98); MEAN PLATELET VOLUME 8.2 FL (7.4-10.4); MONOCYTES # (AUTO) 0.9 X10'3 (0-0.9); MONOCYTES % (AUTO) 8.3 % (2-12); NEUTROPHILS # (AUTO) 9.5 X10'3 (1.8-7.7); NEUTROPHILS % (AUTO) 83.3 % (42-75); PLATELET COUNT 271 X10'3 (140-440); RED BLOOD COUNT 4.35 X10'6 (4.70-6.10); RED CELL DISTRIBUTION WIDTH 14.1 % (11.5-14.5); WHITE BLOOD COUNT 11.4 X10'3 (4.5-11.0)
[2022-04-11 08:23] LABS: ALANINE AMINOTRANSFERASE 35 U/L (12-78); ALBUMIN 4.1 G/DL (3.4-5.0); ALBUMIN/GLOBULIN RATIO 1.1 (1.1-1.5); ALKALINE PHOSPHATASE 76 IU/L (46-116); ANION GAP 10 (8-16); ASPARTATE AMINO TRANSFERASE 19 U/L (10-37); BILIRUBIN,TOTAL 2.1 MG/DL (0.1-1.0); BLOOD UREA NITROGEN 17 MG/DL (7-18); BUN/CREATININE RATIO 14.8 (5.4-32.0); CALCIUM 9.2 MG/DL (8.5-10.1); CHLORIDE 100 MMOL/L (99-107); CREATININE 1.15 MG/DL (0.60-1.10); GLUCOSE 123 MG/DL (70-104); POTASSIUM 3.5 MMOL/L (3.5-5.1); SODIUM 138 MMOL/L (135-145); TOTAL CARBON DIOXIDE 28.3 MMOL/L (24-32); TOTAL PROTEIN 7.8 G/DL (6.4-8.2); eGFR 68 ML/MIN
[2022-04-11] MEDS ORDERED: ipratropium/albuterol 3ml nebule NEB SCH (11:00)
[2022-04-11] MEDS ORDERED: ringers solution, lacted 1,000 ML IV ONE ×2 (11:35→11:55)
[2022-04-11] MEDS ORDERED: azithromycin/NS 500mg/250ml 250 ML IV ONE (12:05)
[2022-04-11] MEDS ORDERED: albuterol 2.5 MG/3 ML nebule NEB PRN (13:15)
[2022-04-11] MEDS ORDERED: ipratropium 0.5 MG/2.5ML nebule IH PRN (13:15)
[2022-04-11] MEDS ORDERED: POTASSIUM BICARB 20meq eff tab 20 MEQ TABLET.EFF PO PRN ×2 (14:10)
[2022-04-11] MEDS ORDERED: magnesium 4gm in 100ml NS 100 ML IV PRN (14:10)
[2022-04-11] MEDS ORDERED: ondansetron/PF 4mg/2ml inj IV PRN (14:10)
[2022-04-11] MEDS ORDERED: magnesium 2GM in 50ml NS 50 ML IV PRN (14:10)
[2022-04-11] MEDS ORDERED: magnesium Cl slow-release 64mg tablet PO PRN (14:10)
[2022-04-11] MEDS ORDERED: acetaminophen 325mg tablet PO PRN (14:10)
[2022-04-11] MEDS ORDERED: potassium CL 10mEq/100ml bag 100 ML IV PRN (14:10)
[2022-04-11 14:45] LABS: MAGNESIUM 1.8 MG/DL (1.5-2.4); POTASSIUM 3.6 MMOL/L (3.5-5.1)
[2022-04-11] MEDS: normal saline 1000ml 1,000 ML IV SCH ×2 (14:48→21:58)
[2022-04-11] MEDS ORDERED: PERFLUTREN PROTEIN-A MICROSPHR (Optison) 0.22 MG/ML 3ML VIAL IV ONE (15:40)
[2022-04-11] MEDS ORDERED: CARV3.123 PO (16:59)
[2022-04-11] MEDS ORDERED: FURO20TA4 PO (16:59)
[2022-04-11] MEDS ORDERED: ALBU8.5H17 INH (16:59)
[2022-04-11] MEDS ORDERED: POTA8CAP20 PO (16:59)
[2022-04-11] MEDS ORDERED: benzonatate 100mg capsule PO ONE (17:35)
--- NOTE | 2022-04-11 18:41 | NUR ---
respiratory paged for prn breathing tx.
[2022-04-11] MEDS: ipratropium/albuterol 3ml nebule NEB PRN ×2 (18:50→22:39)
--- NOTE | 2022-04-11 19:07 | NUR ---
PAGED DR. BAH ABOUT PTS. [facility].
[2022-04-11] MEDS: K and/or MAG REPLACEMENT MC SCH (20:00)
[2022-04-11] MEDS ORDERED: furosemide 20MG tablet PO ONE (20:00)
[2022-04-11] MEDS: guaiFENesin ER 600mg tablet PO SCH (20:38)
[2022-04-11] MEDS: methylPREDNISolone sod succ 125mg/2ml vial IV SCH (20:39)
[2022-04-11] MEDS: heparin, porcine 5000 units/ml vial SQ SCH (20:47)
--- NOTE | 2022-04-11 21:20 | NUR ---
gave report to terrell tobias
[2022-04-11 21:35] VITALS: BP 149/86
--- NOTE | 2022-04-11 21:35 | NUR ---
PATIENT ADMITTED TO ROOM 345B FROM ER FOR PNA AND COPD EXACERBATION. PLACED COMFORTABLE IN BED. VITAL SIGNS TAKEN AND RECORDED.
[2022-04-12] VITALS: BP 138/90
[2022-04-12] MEDS: ipratropium/albuterol 3ml nebule NEB PRN ×4 (02:27→14:19)
[2022-04-12] MEDS: LORazepam 1 MG tablet PO PRN ×3 (03:03→23:26)
[2022-04-12 06:00] VITALS: BP 109/66
[2022-04-12 06:02] LABS: BASOPHILS % (AUTO) 0.3 % (0-1); EOSINOPHILS % (AUTO) 0 % (0-6); HEMATOCRIT 34.3 % (42.0-52.0); HEMOGLOBIN 11.7 g/dl (14.0-17.9); LYMPHOCYTES # (AUTO) 0.4 X10'3 (1.1-4.8); LYMPHOCYTES % (AUTO) 5.3 % (21-51); MEAN CORPUSCULAR HEMOGLOBIN 31.4 PG (27.0-31.0); MEAN CORPUSCULAR VOLUME 92.4 FL (78-98); MEAN PLATELET VOLUME 8.2 FL (7.4-10.4); MONOCYTES # (AUTO) 0.5 X10'3 (0-0.9); MONOCYTES % (AUTO) 6.1 % (2-12); NEUTROPHILS # (AUTO) 6.9 X10'3 (1.8-7.7); NEUTROPHILS % (AUTO) 88.3 % (42-75); PLATELET COUNT 188 X10'3 (140-440); RED BLOOD COUNT 3.71 X10'6 (4.70-6.10); RED CELL DISTRIBUTION WIDTH 13.7 % (11.5-14.5); WHITE BLOOD COUNT 7.8 X10'3 (4.5-11.0)
[2022-04-12 06:23] LABS: ANION GAP 5 (8-16); BLOOD UREA NITROGEN 18 MG/DL (7-18); BUN/CREATININE RATIO 19.8 (5.4-32.0); CALCIUM 8.5 MG/DL (8.5-10.1); CHLORIDE 103 MMOL/L (99-107); CREATININE 0.91 MG/DL (0.60-1.10); GLUCOSE 147 MG/DL (70-104); POTASSIUM 3.9 MMOL/L (3.5-5.1); SODIUM 139 MMOL/L (135-145); TOTAL CARBON DIOXIDE 31.2 MMOL/L (24-32); eGFR 90 ML/MIN
[2022-04-12 06:24] LABS: ALBUMIN 3.2 G/DL (3.4-5.0); MAGNESIUM 2.1 MG/DL (1.5-2.4)
--- NOTE | 2022-04-12 06:40 | NUR ---
Problems reprioritized. Patient report given, questions answered & plan of care reviewed with LENNY ANGELO.
--- NOTE | 2022-04-12 06:48 | NUR ---
Patient in room [facility]GEL 345. I have received report from GI Yates and had the opportunity to ask questions and assume patient care.
[2022-04-12] MEDS: K and/or MAG REPLACEMENT MC SCH ×2 (08:00→20:00)
[2022-04-12] MEDS: triamcinolone acet 0.1% cream 15gm TP SCH ×2 (08:00→20:00)
[2022-04-12] MEDS: CefTRIAXone/D5W-Rocephin 1gm 50 ML IV SCH (08:04)
[2022-04-12] MEDS: heparin, porcine 5000 units/ml vial SQ SCH ×2 (08:05→20:51)
[2022-04-12] MEDS: guaiFENesin ER 600mg tablet PO SCH ×2 (08:06→20:51)
[2022-04-12] MEDS: carVEDilol 3.125mg tablet PO SCH ×2 (08:07→20:50)
[2022-04-12] MEDS: furosemide 20MG tablet PO SCH ×2 (08:07→20:50)
[2022-04-12] MEDS: methylPREDNISolone sod succ 125mg/2ml vial IV SCH ×2 (08:11→20:50)
[2022-04-12 09:30] LABS: CLARITY,URINE SLIGHTLY CLOUDY (Clear); COLOR,URINE YELLOW (Yellow); GLUCOSE, URINE NEGATIVE (Neg); KETONES,URINE NEGATIVE (Neg); LEUKOCYTE ESTERASE ,URINE NEGATIVE (Neg); NITRITES, URINE NEGATIVE (Neg); OCCULT BLOOD,URINE NEGATIVE (Neg); PROTEIN,URINE 30 mg/dl (Neg); UROBILINOGEN,URINE 0.2 E.U/dL (0.2-1.0)
[2022-04-12 09:32] LABS: UA COLLECTION TYPE CLN CATCH MIDSTREAM
[2022-04-12 09:34] LABS: URINE AMPHETAMINE SCREEN NEGATIVE (Neg); URINE BARBITUATE SCREEN NEGATIVE (Neg); URINE BENZODIAZEPINES SCREEN NEGATIVE (Neg); URINE CANNABINOID SCREEN POSITIVE (Neg); URINE COCAINE SCREEN NEGATIVE (Neg); URINE METHADONE SCREEN NEGATIVE (Neg); URINE OPIATE SCREEN NEGATIVE (Neg); URINE PHENCYCLIDINE SCREEN NEGATIVE (Neg)
[2022-04-12] MEDS: azithromycin/NS 500mg/250ml 250 ML IV SCH (09:39)
[2022-04-12 09:59] LABS: MUCUS STRANDS MANY /LPF (Neg); SQUAMOUS EPITHELIAL CELL,UR FEW /LPF (FEW)
[2022-04-12 10:02] LABS: BACTERIA,URINE FEW /HPF (Neg); RBC,URINE 0-2 /HPF (0-2); WBC,URINE 0-4 /HPF (0-4)
[2022-04-12 11:00] VITALS: BP 107/74
[2022-04-12 13:25] VITALS: BP 119/76
[2022-04-12] MEDS: ipratropium/albuterol 3ml nebule NEB SCH ×3 (16:02→23:13)
[2022-04-12] MEDS: benzonatate 100mg capsule PO PRN ×2 (16:15→23:26)
--- NOTE | 2022-04-12 18:15 | NUR ---
Patient in room [facility]GEL 345. I have received report from GI Clay and had the opportunity to ask questions and assume patient care.
--- NOTE | 2022-04-12 18:53 | NUR ---
Problems reprioritized. Patient report given, questions answered & plan of care reviewed with GI Garcia.
[2022-04-12 20:00] VITALS: BP 120/73
[2022-04-12] MEDS: docusate sod 100mg capsule PO SCH (20:50)
[2022-04-12] MEDS: montelukast 10mg tablet PO SCH (20:51)
[2022-04-13] VITALS: BP 120/74
[2022-04-13] MEDS: methylPREDNISolone sod succ 125mg/2ml vial IV SCH ×4 (02:12→20:14)
[2022-04-13] MEDS: ipratropium/albuterol 3ml nebule NEB SCH ×6 (02:57→23:02)
[2022-04-13 06:06] LABS: BASOPHILS % (AUTO) 0.1 % (0-1); EOSINOPHILS % (AUTO) 0 % (0-6); HEMATOCRIT 33.9 % (42.0-52.0); HEMOGLOBIN 11.2 g/dl (14.0-17.9); LYMPHOCYTES # (AUTO) 0.3 X10'3 (1.1-4.8); LYMPHOCYTES % (AUTO) 4.1 % (21-51); MEAN CORPUSCULAR HEMOGLOBIN 31.1 PG (27.0-31.0); MEAN CORPUSCULAR HGB CONC 33.2 g/dL (33.0-36.5); MEAN CORPUSCULAR VOLUME 93.7 FL (78-98); MEAN PLATELET VOLUME 8.7 FL (7.4-10.4); MONOCYTES # (AUTO) 0.4 X10'3 (0-0.9); MONOCYTES % (AUTO) 4.3 % (2-12); NEUTROPHILS # (AUTO) 7.5 X10'3 (1.8-7.7); NEUTROPHILS % (AUTO) 91.5 % (42-75); PLATELET COUNT 194 X10'3 (140-440); RED BLOOD COUNT 3.61 X10'6 (4.70-6.10); RED CELL DISTRIBUTION WIDTH 14.1 % (11.5-14.5); WHITE BLOOD COUNT 8.2 X10'3 (4.5-11.0)
[2022-04-13 06:08] LABS: ALBUMIN 3.2 G/DL (3.4-5.0); ANION GAP 7 (8-16); BLOOD UREA NITROGEN 26 MG/DL (7-18); BUN/CREATININE RATIO 30.2 (5.4-32.0); CALCIUM 8.7 MG/DL (8.5-10.1); CHLORIDE 102 MMOL/L (99-107); CREATININE 0.86 MG/DL (0.60-1.10); GLUCOSE 136 MG/DL (70-104); MAGNESIUM 2.2 MG/DL (1.5-2.4); POTASSIUM 4.1 MMOL/L (3.5-5.1); SODIUM 138 MMOL/L (135-145); eGFR > 90 ML/MIN
--- NOTE | 2022-04-13 06:24 | NUR ---
Problems reprioritized. Patient report given, questions answered & plan of care reviewed with GI Ochoa and GI Clay.
[2022-04-13] MEDS: K and/or MAG REPLACEMENT MC SCH ×2 (06:58→19:30)
--- NOTE | 2022-04-13 07:11 | NUR ---
Patient in room ANGEL 345. I have received report from Radha ANGELO and had the opportunity to ask questions and assume patient care.
[2022-04-13 07:21] VITALS: BP 119/73
[2022-04-13] MEDS: carVEDilol 3.125mg tablet PO SCH ×2 (08:39→20:15)
[2022-04-13] MEDS: furosemide 20MG tablet PO SCH ×2 (08:39→20:15)
[2022-04-13] MEDS: docusate sod 100mg capsule PO SCH ×2 (08:39→20:15)
[2022-04-13] MEDS: guaiFENesin ER 600mg tablet PO SCH ×2 (08:39→20:15)
[2022-04-13] MEDS: heparin, porcine 5000 units/ml vial SQ SCH ×2 (08:40→20:14)
[2022-04-13] MEDS: triamcinolone acet 0.1% cream 15gm TP SCH ×2 (08:40→20:00)
[2022-04-13] MEDS: CefTRIAXone/D5W-Rocephin 1gm 50 ML IV SCH (10:26)
[2022-04-13] MEDS: azithromycin/NS 500mg/250ml 250 ML IV SCH (10:27)
[2022-04-13 12:00] VITALS: BP 117/66
[2022-04-13] MEDS: ipratropium/albuterol 3ml nebule NEB PRN (12:53)
[2022-04-13] MEDS: normal saline 1000ml 1,000 ML IV SCH (14:25)
[2022-04-13] MEDS ORDERED: iohexol 350MG/ML 100ml bottle IV ONE (15:12)
--- NOTE | 2022-04-13 18:00 | NUR ---
Patient in room [facility]GEL 345. I have received report from GI Clay and had the opportunity to ask questions and assume patient care.
--- NOTE | 2022-04-13 18:21 | NUR ---
Problems reprioritized. Patient report given, questions answered & plan of care reviewed with Sintia ANGELO.
[2022-04-13 20:00] VITALS: BP 104/71
[2022-04-13] MEDS: LORazepam 2 mg/ml vial IV PRN (20:12)
[2022-04-13] MEDS: montelukast 10mg tablet PO SCH (20:15)
[2022-04-14] VITALS: BP 118/69
[2022-04-14] MEDS: methylPREDNISolone sod succ 125mg/2ml vial IV SCH ×4 (02:08→20:35)
[2022-04-14] MEDS: LORazepam 2 mg/ml vial IV PRN (02:20)
[2022-04-14] MEDS: ipratropium/albuterol 3ml nebule NEB SCH ×6 (02:46→23:45)
--- NOTE | 2022-04-14 06:20 | NUR ---
Problems reprioritized. Patient report given, questions answered & plan of care reviewed with GI Clay.
--- NOTE | 2022-04-14 06:50 | NUR ---
Patient in room [facility]GEL 345. I have received report from Sintia ANGELO and had the opportunity to ask questions and assume patient care.
[2022-04-14] MEDS: carVEDilol 3.125mg tablet PO SCH ×2 (07:44→20:26)
[2022-04-14] MEDS: furosemide 20MG tablet PO SCH ×2 (07:44→20:26)
[2022-04-14] MEDS: docusate sod 100mg capsule PO SCH ×2 (07:44→20:22)
[2022-04-14] MEDS: guaiFENesin ER 600mg tablet PO SCH ×2 (07:45→20:25)
[2022-04-14] MEDS: heparin, porcine 5000 units/ml vial SQ SCH ×2 (07:47→20:28)
[2022-04-14] MEDS: CefTRIAXone/D5W-Rocephin 1gm 50 ML IV SCH (07:47)
[2022-04-14] MEDS: K and/or MAG REPLACEMENT MC SCH ×2 (08:00→20:00)
[2022-04-14] MEDS: triamcinolone acet 0.1% cream 15gm TP SCH ×2 (08:00→20:00)
[2022-04-14 08:17] LABS: BASOPHILS % (AUTO) 0.3 % (0-1); EOSINOPHILS % (AUTO) 0 % (0-6); HEMATOCRIT 35.6 % (42.0-52.0); HEMOGLOBIN 11.9 g/dl (14.0-17.9); LYMPHOCYTES # (AUTO) 0.5 X10'3 (1.1-4.8); LYMPHOCYTES % (AUTO) 7.2 % (21-51); MEAN CORPUSCULAR HEMOGLOBIN 31.4 PG (27.0-31.0); MEAN CORPUSCULAR HGB CONC 33.4 g/dL (33.0-36.5); MONOCYTES # (AUTO) 0.4 X10'3 (0-0.9); NEUTROPHILS # (AUTO) 6.4 X10'3 (1.8-7.7); NEUTROPHILS % (AUTO) 86.5 % (42-75); PLATELET COUNT 217 X10'3 (140-440); RED BLOOD COUNT 3.78 X10'6 (4.70-6.10); WHITE BLOOD COUNT 7.4 X10'3 (4.5-11.0)
[2022-04-14 08:33] LABS: ALBUMIN 3.4 G/DL (3.4-5.0); ANION GAP 5 (8-16); BLOOD UREA NITROGEN 29 MG/DL (7-18); BUN/CREATININE RATIO 30.5 (5.4-32.0); CALCIUM 8.6 MG/DL (8.5-10.1); CHLORIDE 101 MMOL/L (99-107); CREATININE 0.95 MG/DL (0.60-1.10); GLUCOSE 130 MG/DL (70-104); MAGNESIUM 2.6 MG/DL (1.5-2.4); POTASSIUM 4.4 MMOL/L (3.5-5.1); SODIUM 139 MMOL/L (135-145); TOTAL CARBON DIOXIDE 32.7 MMOL/L (24-32); eGFR 85 ML/MIN
[2022-04-14 08:55] VITALS: BP 110/65
[2022-04-14] MEDS: azithromycin/NS 500mg/250ml 250 ML IV SCH (09:35)
[2022-04-14] MEDS: LORazepam 1 MG tablet PO PRN ×2 (09:49→20:28)
[2022-04-14] MEDS ORDERED: bisacodyl 10mg suppository rectal RC PRN (12:05)
[2022-04-14] MEDS ORDERED: HYDROcodone/acetaminophen 5mg/325mg tablet PO PRN (12:05)
[2022-04-14 12:38] VITALS: BP 122/81
[2022-04-14 18:00] VITALS: BP 118/80
--- NOTE | 2022-04-14 18:35 | NUR ---
Problems reprioritized. Patient report given, questions answered & plan of care reviewed with Prudence RN.
--- NOTE | 2022-04-14 18:58 | NUR ---
Patient in room [facility]GEL 345. I have received report from LENNY ANGELO AND GERRI ANGELO and had the opportunity to ask questions and assume patient care.
[2022-04-14] MEDS: montelukast 10mg tablet PO SCH (20:25)
[2022-04-14] MEDS: benzonatate 100mg capsule PO PRN (20:28)
[2022-04-15] VITALS: BP 115/70
[2022-04-15] MEDS: methylPREDNISolone sod succ 125mg/2ml vial IV SCH ×4 (02:15→20:01)
[2022-04-15] MEDS: ipratropium/albuterol 3ml nebule NEB SCH ×6 (03:58→23:25)
--- NOTE | 2022-04-15 06:16 | NUR ---
Problems reprioritized. Patient report given, questions answered & plan of care reviewed with KELLY ANGELO.
[2022-04-15 07:24] VITALS: BP 129/69
[2022-04-15 07:38] LABS: BASOPHILS % (AUTO) 0.1 % (0-1); EOSINOPHILS % (AUTO) 0 % (0-6); HEMATOCRIT 32.8 % (42.0-52.0); HEMOGLOBIN 11.2 g/dl (14.0-17.9); LYMPHOCYTES # (AUTO) 0.6 X10'3 (1.1-4.8); MEAN CORPUSCULAR HEMOGLOBIN 33.2 PG (27.0-31.0); MEAN CORPUSCULAR HGB CONC 34.2 g/dL (33.0-36.5); MEAN CORPUSCULAR VOLUME 96.9 FL (78-98); MONOCYTES # (AUTO) 0.4 X10'3 (0-0.9); MONOCYTES % (AUTO) 6.1 % (2-12); NEUTROPHILS # (AUTO) 5.9 X10'3 (1.8-7.7); NEUTROPHILS % (AUTO) 85.8 % (42-75); PLATELET COUNT 195 X10'3 (140-440); RED BLOOD COUNT 3.38 X10'6 (4.70-6.10); RED CELL DISTRIBUTION WIDTH 13.9 % (11.5-14.5); WHITE BLOOD COUNT 6.9 X10'3 (4.5-11.0)
[2022-04-15] MEDS: docusate sod 100mg capsule PO SCH ×2 (07:42→20:02)
[2022-04-15] MEDS: guaiFENesin ER 600mg tablet PO SCH ×2 (07:42→20:01)
[2022-04-15] MEDS: carVEDilol 3.125mg tablet PO SCH ×2 (07:42→20:01)
[2022-04-15] MEDS: CefTRIAXone/D5W-Rocephin 1gm 50 ML IV SCH (07:42)
[2022-04-15] MEDS: furosemide 20MG tablet PO SCH ×2 (07:42→20:01)
[2022-04-15] MEDS: heparin, porcine 5000 units/ml vial SQ SCH ×2 (07:43→20:06)
[2022-04-15] MEDS: triamcinolone acet 0.1% cream 15gm TP SCH ×2 (08:00→20:00)
[2022-04-15] MEDS: K and/or MAG REPLACEMENT MC SCH ×2 (08:00→20:20)
[2022-04-15 08:09] LABS: ALBUMIN 3.2 G/DL (3.4-5.0); ANION GAP 6 (8-16); BLOOD UREA NITROGEN 32 MG/DL (7-18); BUN/CREATININE RATIO 37.2 (5.4-32.0); CALCIUM 8.5 MG/DL (8.5-10.1); CHLORIDE 102 MMOL/L (99-107); CREATININE 0.86 MG/DL (0.60-1.10); GLUCOSE 141 MG/DL (70-104); MAGNESIUM 2.9 MG/DL (1.5-2.4); SODIUM 140 MMOL/L (135-145); TOTAL CARBON DIOXIDE 32.2 MMOL/L (24-32); eGFR > 90 ML/MIN
[2022-04-15] MEDS: azithromycin/NS 500mg/250ml 250 ML IV SCH (09:11)
[2022-04-15 11:00] VITALS: BP 114/81
[2022-04-15] MEDS: losartan 25mg tablet PO SCH (11:06)
--- NOTE | 2022-04-15 12:01 | NUR ---
Initial: Pt admit for acute respiratory failure with RLL PNA and COPD exacerbation. Currently on a regular diet and eating well, documented with 75-100% PO intake throughout LOS meeting estimated nutrient needs. LBM 04/14, receiving routine bowel care. No nutrition intervention implemented at this time. Will continue to follow. Recommendations: 1) Continue regular diet 2) Routine bowel care 3) Scaled weight this admit; subsequent weekly scaled weights Addendum: 04/15/22 at [address] Amended: Links added.
[2022-04-15] MEDS: normal saline 1000ml 1,000 ML IV SCH (15:37)
[2022-04-15 18:00] VITALS: BP 107/68
--- NOTE | 2022-04-15 18:02 | NUR ---
Problems reprioritized. Patient report given, questions answered & plan of care reviewed with PRUDENCE RN.
--- NOTE | 2022-04-15 18:13 | NUR ---
Problems reprioritized. Patient report given, questions answered & plan of care reviewed with PRUDENCE RN.
--- NOTE | 2022-04-15 18:34 | NUR ---
Patient in room [facility] 345. I have received report from KELLY ANGELO and had the opportunity to ask questions and assume patient care.
[2022-04-15] MEDS: LORazepam 1 MG tablet PO PRN (20:01)
[2022-04-15] MEDS: montelukast 10mg tablet PO SCH (20:18)
[2022-04-16] VITALS: BP 110/62
[2022-04-16 02:00] VITALS: BP 111/66
[2022-04-16] MEDS: methylPREDNISolone sod succ 125mg/2ml vial IV SCH ×4 (02:27→16:18)
[2022-04-16] MEDS: ipratropium/albuterol 3ml nebule NEB SCH ×6 (03:55→23:29)
[2022-04-16 06:00] VITALS: BP 113/71
--- NOTE | 2022-04-16 06:21 | NUR ---
Problems reprioritized. Patient report given with Bibi RN, questions answered & plan of care reviewed with Tila ANGELO.
--- NOTE | 2022-04-16 06:33 | NUR ---
Problems reprioritized. Patient report given, questions answered & plan of care reviewed with MARAH ANGELO.
[2022-04-16 07:27] LABS: BASOPHILS % (AUTO) 0.1 % (0-1); EOSINOPHILS % (AUTO) 0.1 % (0-6); HEMATOCRIT 31.7 % (42.0-52.0); HEMOGLOBIN 10.9 g/dl (14.0-17.9); LYMPHOCYTES # (AUTO) 0.6 X10'3 (1.1-4.8); LYMPHOCYTES % (AUTO) 7.9 % (21-51); MEAN CORPUSCULAR HEMOGLOBIN 32.5 PG (27.0-31.0); MEAN CORPUSCULAR HGB CONC 34.3 g/dL (33.0-36.5); MEAN CORPUSCULAR VOLUME 94.8 FL (78-98); MEAN PLATELET VOLUME 8.9 FL (7.4-10.4); MONOCYTES # (AUTO) 0.4 X10'3 (0-0.9); MONOCYTES % (AUTO) 5.5 % (2-12); NEUTROPHILS # (AUTO) 6.9 X10'3 (1.8-7.7); NEUTROPHILS % (AUTO) 86.4 % (42-75); PLATELET COUNT 189 X10'3 (140-440); RED BLOOD COUNT 3.34 X10'6 (4.70-6.10); RED CELL DISTRIBUTION WIDTH 13.9 % (11.5-14.5)
[2022-04-16 07:43] LABS: ANION GAP 6 (8-16); BLOOD UREA NITROGEN 26 MG/DL (7-18); BUN/CREATININE RATIO 35.1 (5.4-32.0); CALCIUM 8.2 MG/DL (8.5-10.1); CHLORIDE 101 MMOL/L (99-107); CREATININE 0.74 MG/DL (0.60-1.10); GLUCOSE 138 MG/DL (70-104); POTASSIUM 4.3 MMOL/L (3.5-5.1); SODIUM 138 MMOL/L (135-145); TOTAL CARBON DIOXIDE 31.1 MMOL/L (24-32); eGFR > 90 ML/MIN
[2022-04-16] MEDS: K and/or MAG REPLACEMENT MC SCH ×2 (08:00→20:00)
[2022-04-16 08:07] LABS: PLATELET ESTIMATE NORMAL; TOTAL CELLS COUNTED 100
[2022-04-16 10:00] VITALS: BP 111/59
[2022-04-16] MEDS: CefTRIAXone/D5W-Rocephin 1gm 50 ML IV SCH (10:45)
[2022-04-16] MEDS: losartan 25mg tablet PO SCH (10:47)
[2022-04-16] MEDS: carVEDilol 3.125mg tablet PO SCH ×2 (10:48→19:25)
[2022-04-16] MEDS: docusate sod 100mg capsule PO SCH (10:49)
[2022-04-16] MEDS: guaiFENesin ER 600mg tablet PO SCH ×2 (10:49→19:25)
[2022-04-16] MEDS: furosemide 20MG tablet PO SCH ×2 (10:49→19:25)
[2022-04-16] MEDS: heparin, porcine 5000 units/ml vial SQ SCH ×2 (10:50→19:26)
[2022-04-16] MEDS: triamcinolone acet 0.1% cream 15gm TP SCH ×2 (10:58→20:00)
[2022-04-16] MEDS ORDERED: LORazepam 2 mg/ml vial IV PRN (11:55)
[2022-04-16] MEDS: azithromycin/NS 500mg/250ml 250 ML IV SCH (16:18)
[2022-04-16] MEDS ORDERED: pantoprazole 40mg Tablet.DR PO ONE (16:50)
[2022-04-16] MEDS ORDERED: mag hydrox/Alum hydrox/simeth 30ml oral suspension PO ONE (16:50)
[2022-04-16 18:00] VITALS: BP 136/84
--- NOTE | 2022-04-16 18:30 | NUR ---
Patient in room [facility] 345. I have received report from GI Adorno and had the opportunity to ask questions and assume patient care. Patient is resting comfortably on bed, needs IV and I have advised him I will come back and try.
[2022-04-16] MEDS: montelukast 10mg tablet PO SCH (19:25)
--- NOTE | 2022-04-16 19:26 | NUR ---
Problems reprioritized. Patient report given, questions answered & plan of care reviewed with GI TINAJERO.
[2022-04-17] MEDS: methylPREDNISolone sod succ 125mg/2ml vial IV SCH ×2 (00:16→08:33)
[2022-04-17] MEDS: ipratropium/albuterol 3ml nebule NEB SCH ×3 (02:55→11:15)
[2022-04-17 06:00] VITALS: BP 112/70
--- NOTE | 2022-04-17 06:15 | NUR ---
Problems reprioritized. Patient report given, questions answered & plan of care reviewed with GI Adorno.
--- NOTE | 2022-04-17 06:54 | NUR ---
Patient in room ANGEL 345B. I have received report from GI TINAJERO and had the opportunity to ask questions and assume patient care.
[2022-04-17] MEDS ORDERED: pantoprazole 40mg Tablet.DR PO SCH (08:00)
[2022-04-17] MEDS: K and/or MAG REPLACEMENT MC SCH (08:00)
[2022-04-17] MEDS: carVEDilol 3.125mg tablet PO SCH (08:32)
[2022-04-17] MEDS: guaiFENesin ER 600mg tablet PO SCH (08:32)
[2022-04-17] MEDS: azithromycin/NS 500mg/250ml 250 ML IV SCH (08:32)
[2022-04-17] MEDS: losartan 25mg tablet PO SCH (08:33)
[2022-04-17] MEDS: heparin, porcine 5000 units/ml vial SQ SCH (08:34)
[2022-04-17] MEDS: furosemide 20MG tablet PO SCH (08:35)
[2022-04-17] MEDS: triamcinolone acet 0.1% cream 15gm TP SCH (08:44)
[2022-04-17 10:00] VITALS: BP 105/76
[2022-04-17] MEDS: CefTRIAXone/D5W-Rocephin 1gm 50 ML IV SCH (10:59)
[2022-04-17 11:21] LABS: BASOPHILS % (AUTO) 0.1 % (0-1); EOSINOPHILS % (AUTO) 0.1 % (0-6); HEMATOCRIT 35.5 % (42.0-52.0); HEMOGLOBIN 11.9 g/dl (14.0-17.9); LYMPHOCYTES # (AUTO) 0.7 X10'3 (1.1-4.8); MEAN CORPUSCULAR HEMOGLOBIN 32.5 PG (27.0-31.0); MEAN CORPUSCULAR HGB CONC 33.6 g/dL (33.0-36.5); MEAN CORPUSCULAR VOLUME 96.6 FL (78-98); MEAN PLATELET VOLUME 8.9 FL (7.4-10.4); MONOCYTES # (AUTO) 0.7 X10'3 (0-0.9); MONOCYTES % (AUTO) 5.2 % (2-12); NEUTROPHILS # (AUTO) 11.9 X10'3 (1.8-7.7); NEUTROPHILS % (AUTO) 89.6 % (42-75); PLATELET COUNT 226 X10'3 (140-440); RED BLOOD COUNT 3.67 X10'6 (4.70-6.10); RED CELL DISTRIBUTION WIDTH 14.1 % (11.5-14.5); WHITE BLOOD COUNT 13.2 X10'3 (4.5-11.0)
[2022-04-17] MEDS ORDERED: GUAI600T45 PO (12:35)
[2022-04-17] MEDS ORDERED: LOSA25TA41 PO (12:35)
[2022-04-17] MEDS ORDERED: LEVO-65 PO (12:36)
[2022-04-17 12:56] LABS: PLATELET ESTIMATE NORMAL; TOTAL CELLS COUNTED 100
--- NOTE | 2022-04-17 17:49 | NUR ---
PATIENT STABLE AND APPROPRIATE FOR DISCHARGE, IV & TELE REMOVED, EDUCATION GIVEN, NEW MEDS CALLED INTO PREFERRED PHARMACY, ALL BELONGINGS SENT WITH PATIENT, PATIENT TAKEN TO LOBBY BY WHEELCHAIR TO AN AWAITING CAR WHERE SISTER WILL TAKE PATIENT HOME
[2022-04-17] MEDS ORDERED: PRED10TA23 PO (18:06)
== END 2022-04-17 14:45 | disposition home or self-care (01) | DRG 133 ==
LOC: ER 07:02 → ED HOLD 15:38 → SUR 3N 21:31
PROVIDERS: ADMIT Internal Medicine; ATTEND Internal Medicine
PROC: B32T1ZZ Computerized Tomography (CT Scan) of Left Pulmonary Artery using Low Osmolar Contrast (ICD-10-PCS; principal; 2022-04-13)
PROC: B3201ZZ Computerized Tomography (CT Scan) of Thoracic Aorta using Low Osmolar Contrast (ICD-10-PCS; 2022-04-13)
PROC: B32S1ZZ Computerized Tomography (CT Scan) of Right Pulmonary Artery using Low Osmolar Contrast (ICD-10-PCS; 2022-04-13)
DX: J96.20 Acute and chronic respiratory failure, unspecified whether with hypoxia or hypercapnia (principal); J18.9 Pneumonia, unspecified organism; J44.0 Chronic obstructive pulmonary disease with (acute) lower respiratory infection; I11.0 Hypertensive heart disease with heart failure; J45.901 Unspecified asthma with (acute) exacerbation; I50.42 Chronic combined systolic (congestive) and diastolic (congestive) heart failure; J44.1 Chronic obstructive pulmonary disease with (acute) exacerbation; Z20.822 Contact with and (suspected) exposure to COVID-19; F41.9 Anxiety disorder, unspecified; Z56.0 Unemployment, unspecified
CPT/HCPCS: 36415; 71045; 71275; 80048; 80053; 80305; 81001; 83605; 83735; 83880; 84132; 84145; 84484; 85007; 85025; 87040; 87070; 87081; 87635; 93005; 93306; 94640; 94760; 99285; A4615; A7015; C9803; G0378; J0456; J0696; J1644; J2060; J2930; J3490; J7030; J7120; Q9967

== ENCOUNTER 2022-10-30 10:32 | Emergency (ER) | payer MEDICAID ==
[~2022-10-30] VITALS: Ht 162.6 cm; Wt 65.5 kg
[~2022-10-30 10:32] MED LIST changes: -ALBU2.5V13 NEB; +CARV3.123 PO; +FURO20TA4 PO; -HYDR12.55 PO; +LOSA25TA41 PO; -LOSA50TA64 PO; +POTA8CAP20 PO
[2022-10-30 10:38] VITALS: BP 124/74
[2022-10-30] MEDS ORDERED: ACYC-129 PO (12:08)
== END 2022-10-30 12:29 | disposition home or self-care (01) ==
LOC: ER 10:33
DX: B02.9 Zoster without complications (principal); J44.9 Chronic obstructive pulmonary disease, unspecified; I51.9 Heart disease, unspecified; Z79.899 Other long term (current) drug therapy
CPT/HCPCS: 99283